=== PATIENT | male | born 1965 | race African-American/Black ===

== ENCOUNTER 2019-08-05 09:35 | Emergency (ER) | payer MEDICARE ==
[~2019-08-05] VITALS: Ht 180.3 cm; Wt 72.7 kg
[~2019-08-05 09:35] MED LIST: AMOXICILLIN/PO500 MG PO; CLARITIN10 M1 PO; FLONASE NASAL50 MCG; IMURAN50 MG PO; NEORAL100 MG PO; NORVASC2.5 MG PO; PREDNISONE10 MG PO; ULTRAM50 M1 PO
[2019-08-05] MEDS ORDERED: CEPHALEXIN500 M1 PO (10:29)
[2019-08-05 12:05] VITALS: BP 126/78
== END 2019-08-05 12:00 | disposition home or self-care (01) ==
LOC: ED 09:35
PROC: 0HQGXZZ Repair Left Hand Skin, External Approach (ICD-10-PCS; principal; 2019-08-05)
DX: S61.012A Laceration without foreign body of left thumb without damage to nail, initial encounter (principal); I10 Essential (primary) hypertension; F17.290 Nicotine dependence, other tobacco product, uncomplicated; W26.0XXA Contact with knife, initial encounter; Z94.0 Kidney transplant status